=== PATIENT | female | born 1985 | race Caucasian/White ===

== ENCOUNTER 2021-09-16 20:46 | Emergency (ER) | payer OTHER ==
[~2021-09-16] VITALS: Ht 167.6 cm; Wt 90.7 kg
[2021-09-16 21:34] LABS: BASO # 0.1 10*3/uL (0.0-0.1); BASO % 0.7 % (0.0-1.0); EOS # 0.3 10*3/uL (0.0-0.4); EOS % 2.4 % (1.0-4.0); HEMATOCRIT 31.6 % (37.0-47.0); LYMPH # 2.6 10*3/uL (1.3-4.4); LYMPH % 21.7 % (27.0-41.0); MEAN CELL VOLUME 90.3 fl (81.0-99.0); MEAN CORPUSCULAR HGB 29.4 pg (27.0-31.0); MEAN CORPUSCULAR HGB CONC 32.6 g/dl (33.0-37.0); MEAN PLATELET VOLUME 9.6 fl (9.6-12.3); MONO # 1.2 10*3/uL (0.1-1.0); MONO % 10.4 % (3.0-9.0); NEUT # 7.7 10*3/uL (2.3-7.9); NEUT % 64.3 % (47.0-73.0); PLATELET COUNT AUTOMATED 487 10*3/uL (130-400); RED CELL DISTRI WIDTH 12.5 % (0-14.5); WHITE BLOOD COUNT 11.9 10*3/uL (4.8-10.8)
[2021-09-16 21:45] LABS: ACT PARTIAL THROMBO TIME 28.8 SECONDS (20.0-32.1)
[2021-09-16 21:49] LABS: ALKALINE PHOSPHATASE 81 U/L (45-117); BUN 18 mg/dl (7-24); CHLORIDE 109 mmol/L (98-107); CREATININE 0.84 mg/dL (0.55-1.02); POTASSIUM 4.3 mmol/L (3.5-5.1); SGOT/AST 42 IU/L (3-35); SGPT/ALT 26 U/L (12-78); SODIUM 139 mmol/L (136-145); TOTAL PROTEIN 6.4 gm/dL (6.4-8.2)
== END 2021-09-17 01:10 | disposition home or self-care (01) ==
LOC: ED 20:46
PROVIDERS: Internal Medicine
DX: I50.9 Heart failure, unspecified (principal); D64.9 Anemia, unspecified; E43 Unspecified severe protein-calorie malnutrition; R73.9 Hyperglycemia, unspecified

== ENCOUNTER 2022-12-11 14:35 | Emergency (ER) | payer OTHER ==
[~2022-12-11] VITALS: Ht 170.1 cm; Wt 92.1 kg
[~2022-12-11 14:35] MED LIST: ALDACTONE25 MG PO; ASPIRIN CHEWABL81 MG PO; ATORVASTATIN CA40 M1 PO; BUMETANIDE1 MG PO; BUSPIRONE HCL30 MG PO; ENTRESTO 24 MG1 EACH PO; FISH OIL 1,2001 EACH PO; GABAPENTIN400 MG PO; HUMALOG100 UNIT/1 SQ; LAMICTAL100 MG PO; LYVISPAH10 M1 PO; METOPROLOL SUCC25 M2 PO; METOPROLOL SUCC50 M1 PO; OMEPRAZOLE40 MG PO; PROZAC40 M1 PO; TOUJEO SOL300 UNIT/1 SQ; TRAZODONE HYDR300 MG PO; ZIPRASIDONE HCL40 MG PO
[2022-12-11 19:54] LABS: BASO # 0.1 10*3/uL (0.0-0.1); BASO % 0.7 % (0.0-1.0); EOS # 0.6 10*3/uL (0.0-0.4); EOS % 5.9 % (1.0-4.0); HEMATOCRIT 46.7 % (37.0-47.0); LYMPH # 2.8 10*3/uL (1.3-4.4); LYMPH % 29.5 % (27.0-41.0); MEAN CELL VOLUME 84.1 fl (81.0-99.0); MEAN CORPUSCULAR HGB CONC 32.1 g/dl (33.0-37.0); MEAN PLATELET VOLUME 9.7 fl (9.6-12.3); MONO # 0.8 10*3/uL (0.1-1.0); NEUT # 5.1 10*3/uL (2.3-7.9); NEUT % 54.7 % (47.0-73.0); PLATELET COUNT AUTOMATED 364 10*3/uL (130-400); RED BLOOD COUNT 5.55 10*6/uL (4.10-5.10); RED CELL DISTRI WIDTH 13.2 % (0-14.5); WHITE BLOOD COUNT 9.4 10*3/uL (4.8-10.8)
[2022-12-11 20:13] LABS: ALKALINE PHOSPHATASE 74 U/L (46-116); BUN 24 mg/dl (9-23); CHLORIDE 98 mmol/L (98-107); POTASSIUM 4.4 mmol/L (3.4-5.1); SGPT/ALT 15 U/L (10-49); TOTAL PROTEIN 7.5 gm/dL (6.0-8.0)
== END 2022-12-11 21:51 | disposition home or self-care (01) ==
LOC: ED 14:35
PROVIDERS: Nurse Practitioner Family
DX: M25.561 Pain in right knee (principal); Z98.890 Other specified postprocedural states; D64.9 Anemia, unspecified; F41.9 Anxiety disorder, unspecified; F31.9 Bipolar disorder, unspecified; I50.9 Heart failure, unspecified; E11.65 Type 2 diabetes mellitus with hyperglycemia; Z79.4 Long term (current) use of insulin; I25.2 Old myocardial infarction; Z90.89 Acquired absence of other organs; Z87.891 Personal history of nicotine dependence

== ENCOUNTER 2023-08-16 16:58 | Inpatient (IN) | payer MEDICARE ==
[~2023-08-16] VITALS: Ht 170 cm; Wt 101.7 kg
[~2023-08-16 16:58] MED LIST changes: +CIPRO500 MG PO; +METRONIDAZOLE500 M1 PO; +VENLAFAXINE HYD75 M3 PO; +VITAMIN D3125 MCG PO; +ZIPRASIDONE HCL60 M1 PO
[2023-08-16 17:21] VITALS: BP 188/100
[2023-08-16 18:03] LABS: BASO # 0.1 10*3/uL (0.0-0.1); BASO % 0.8 % (0.0-1.0); EOS # 0.2 10*3/uL (0.0-0.4); EOS % 2.3 % (1.0-4.0); HEMATOCRIT 40.5 % (37.0-47.0); LYMPH # 1.9 10*3/uL (1.3-4.4); LYMPH % 23.1 % (27.0-41.0); MEAN CORPUSCULAR HGB 29.3 pg (27.0-31.0); MEAN CORPUSCULAR HGB CONC 34.1 g/dl (33.0-37.0); MEAN PLATELET VOLUME 9.6 fl (9.6-12.3); MONO # 0.5 10*3/uL (0.1-1.0); MONO % 5.9 % (3.0-9.0); NEUT # 5.6 10*3/uL (2.3-7.9); NEUT % 67.7 % (47.0-73.0); PLATELET COUNT AUTOMATED 381 10*3/uL (130-400); RED BLOOD COUNT 4.71 10*6/uL (4.10-5.10); RED CELL DISTRI WIDTH 12.6 % (0-14.5); WHITE BLOOD COUNT 8.3 10*3/uL (4.8-10.8)
[2023-08-16 18:14] LABS: ACT PARTIAL THROMBO TIME 31.6 SECONDS (20.0-32.1)
[2023-08-16 18:27] LABS: ALKALINE PHOSPHATASE 95 U/L (46-116); BUN 26 mg/dl (9-23); CHLORIDE 98 mmol/L (98-107); SGPT/ALT 16 U/L (5-49); TOTAL PROTEIN 5.9 gm/dL (6.0-8.0)
[2023-08-16] MEDS ORDERED: Insulin Lispro, Recombinant 1 UNIT/0.01 ML UN SC ONE (18:40)
[2023-08-16] MEDS ORDERED: INSULIN LISPRO 1 UNIT/0.01 ML SQ ONE (18:40)
[2023-08-16] MEDS ORDERED: SODIUM CHLORIDE 0.9% 500 ML IV ONE (18:40)
[2023-08-16 18:58] LABS: BILIRUBIN Negative (Negative); BLOOD 2+ (Negative); CLARITY Clear (Clear); COLOR Yellow (Yellow); GLUCOSE 3+ (Negative); KETONE Trace (Negative); LEUKO ESTERASE Negative (Negative); NITRITE Negative (Negative); SPECIFIC GRAVITY >= 1.030 (1.001-1.030); UROBILINOGEN 0.2 E.U./dl (0.0-1.0)
[2023-08-16 19:10] LABS: BACTERIA TRACE; WBC 0-2 wbc/hpf (0-5)
[2023-08-16 19:25] LABS: B-hCG (QUALITATIVE) NEGATIVE (NEGATIVE)
[2023-08-16] MEDS ORDERED: DEXTROSE 10 % IN WATER 250 ML IV PRN (21:25)
[2023-08-16] MEDS ORDERED: BISACODYL 5 MG TAB PO PRN (21:30)
[2023-08-16] MEDS ORDERED: Magnesium Hydroxide 30 ML UDC PO PRN (21:30)
[2023-08-16] MEDS ORDERED: ACETAMINOPHEN 325 MG TAB PO PRN (21:30)
[2023-08-16] MEDS ORDERED: ASPIRIN, CHEWABLE 81 MG TAB PO ONE (21:35)
[2023-08-16] MEDS ORDERED: Metoprolol Tartrate 25 MG TAB PO SCH (21:35)
[2023-08-16] MEDS ORDERED: HEPARIN SODIUM 250 ML IV SCH (21:35)
[2023-08-16] MEDS ORDERED: SODIUM CHLORIDE 0.9% 1,000 ML IV ONE (21:45)
[2023-08-16 21:55] VITALS: BP 174/101
[2023-08-16] MEDS ORDERED: INSULIN LISPRO 1 UNIT/0.01 ML SQ SCH (22:00)
[2023-08-16] MEDS ORDERED: Acetaminophen/Hydrocodone 5 MG/325 MG TABLET PO PRN (22:40)
[2023-08-16] MEDS ORDERED: Ondansetron Hydrochloride 4 MG/2 ML VIAL IV PRN (22:40)
[2023-08-16] MEDS ORDERED: MORPHINE Sulfate 2 MG/ML SYR IV PRN (22:40)
[2023-08-16] MEDS ORDERED: LABETALOL HCL IV ONE (23:35)
[2023-08-17] VITALS (7 sets, daily range): BP systolic 123–170; BP diastolic 64–101
[2023-08-17] MEDS ORDERED: BUMETANIDE 1 MG/4 ML VIAL IV SCH (01:40)
[2023-08-17] MEDS ORDERED: Ceftriaxone Sodium 2 GM in SYRINGE INFUSION 20 ML IV SCH (01:40)
[2023-08-17] MEDS ORDERED: Labetalol Hydrochloride 20 MG/4 ML SYR IV ONE (01:45)
[2023-08-17] MEDS ORDERED: Doxycycline Hyclate 100 MG in SODIUM CHLORIDE 0.9% 250 ML IV SCH (02:00)
[2023-08-17 04:32] LABS: BASO # 0.1 10*3/uL (0.0-0.1); EOS # 0.3 10*3/uL (0.0-0.4); EOS % 3.2 % (1.0-4.0); HEMATOCRIT 40.8 % (37.0-47.0); MEAN CELL VOLUME 85.5 fl (81.0-99.0); MEAN PLATELET VOLUME 9.9 fl (9.6-12.3); MONO # 0.6 10*3/uL (0.1-1.0); MONO % 6.3 % (3.0-9.0); NEUT # 4.3 10*3/uL (2.3-7.9); NEUT % 46.3 % (47.0-73.0); PLATELET COUNT AUTOMATED 358 10*3/uL (130-400); RED BLOOD COUNT 4.77 10*6/uL (4.10-5.10); RED CELL DISTRI WIDTH 12.9 % (0-14.5); WHITE BLOOD COUNT 9.2 10*3/uL (4.8-10.8)
[2023-08-17 04:53] LABS: FREE T4 0.92 ng/dl (0.89-1.76); POTASSIUM 3.4 mmol/L (3.4-5.1)
[2023-08-17] MEDS ORDERED: ASPIRIN ENTERIC COATED 81 MG TAB PO SCH (10:00)
[2023-08-17] MEDS ORDERED: ATORVASTATIN CALCIUM 80 MG TAB PO SCH (10:00)
[2023-08-17] MEDS ORDERED: GUAIFENESIN 600 MG TAB ER PO SCH (10:00)
[2023-08-17] MEDS ORDERED: Doxycycline Hyclate 100 MG VIAL IV ONE (10:14)
[2023-08-17] MEDS ORDERED: SODIUM CHLORIDE 0.9% 250 ML BAG IV ONE (10:14)
[2023-08-17] MEDS ORDERED: LAMOTRIGINE 100 MG TAB PO SCH (17:05)
[2023-08-17] MEDS ORDERED: Insulin Glargine, Recombinan 1 UNIT/0.01 ML SC SCH (22:00)
[2023-08-17] MEDS ORDERED: GABAPENTIN 600 MG TAB PO SCH (22:00)
[2023-08-17] MEDS ORDERED: TRAZODONE HYDROCHLORIDE 150 MG PO SCH ×2 (22:00)
[2023-08-18] MEDS ORDERED: Doxycycline Hyclate 100 MG CAP PO SCH (00:30)
[2023-08-18 03:19] LABS: BASO # 0.1 10*3/uL (0.0-0.1); BASO % 1.1 % (0.0-1.0); EOS # 0.3 10*3/uL (0.0-0.4); EOS % 3.3 % (1.0-4.0); HEMATOCRIT 41.3 % (37.0-47.0); LYMPH # 4.3 10*3/uL (1.3-4.4); LYMPH % 45.3 % (27.0-41.0); MEAN CORPUSCULAR HGB CONC 32.7 g/dl (33.0-37.0); MEAN PLATELET VOLUME 9.7 fl (9.6-12.3); MONO # 0.5 10*3/uL (0.1-1.0); MONO % 5.7 % (3.0-9.0); NEUT # 4.2 10*3/uL (2.3-7.9); NEUT % 44.4 % (47.0-73.0); PLATELET COUNT AUTOMATED 370 10*3/uL (130-400); RED BLOOD COUNT 4.66 10*6/uL (4.10-5.10); RED CELL DISTRI WIDTH 13.2 % (0-14.5); WHITE BLOOD COUNT 9.5 10*3/uL (4.8-10.8)
[2023-08-18 03:29] LABS: MEAN CELL VOLUME 88.6 fl (81.0-99.0)
[2023-08-18 03:37] LABS: POTASSIUM 3.6 mmol/L (3.4-5.1)
[2023-08-18 04:35] VITALS: BP 127/66
[2023-08-18] MEDS ORDERED: OMEPRAZOLE 20 MG CAP PO SCH (07:30)
[2023-08-18] MEDS ORDERED: Cholecalciferol 5,000 IU CAP (125 MCG) PO SCH (10:00)
[2023-08-18] MEDS ORDERED: Venlafaxine Hydrochloride 75 MG CAP PO SCH (10:00)
[2023-08-18 12:20] VITALS: BP 137/76
[2023-08-18 14:00] VITALS: BP 137/83
[2023-08-18] MEDS ORDERED: FOAM BANDAGE 4X4 T ONE ×2 (15:19→15:37)
[2023-08-18 20:00] VITALS: BP 141/80
[2023-08-18] MEDS ORDERED: HEPARIN SODIUM 5,000 UNIT/ML VIAL SC SCH (22:00)
[2023-08-18] MEDS ORDERED: GABAPENTIN 600 MG TAB PO SCH (22:00)
[2023-08-19 04:04] LABS: BASO # 0.1 10*3/uL (0.0-0.1); BASO % 1.1 % (0.0-1.0); EOS # 0.4 10*3/uL (0.0-0.4); EOS % 4.9 % (1.0-4.0); HEMATOCRIT 39.1 % (37.0-47.0); LYMPH # 3.7 10*3/uL (1.3-4.4); LYMPH % 41.2 % (27.0-41.0); MEAN CELL VOLUME 89.3 fl (81.0-99.0); MEAN CORPUSCULAR HGB CONC 32.5 g/dl (33.0-37.0); MEAN PLATELET VOLUME 9.6 fl (9.6-12.3); MONO # 0.7 10*3/uL (0.1-1.0); MONO % 8.1 % (3.0-9.0); NEUT % 44.3 % (47.0-73.0); PLATELET COUNT AUTOMATED 344 10*3/uL (130-400); RED BLOOD COUNT 4.38 10*6/uL (4.10-5.10); RED CELL DISTRI WIDTH 13.1 % (0-14.5); WHITE BLOOD COUNT 9.1 10*3/uL (4.8-10.8)
[2023-08-19 04:29] LABS: POTASSIUM 4.5 mmol/L (3.4-5.1)
[2023-08-19 08:00] VITALS: BP 114/71
[2023-08-19] MEDS ORDERED: EMPAGLIFLOZIN 10 MG TABLET PO SCH (10:00)
[2023-08-19] MEDS ORDERED: ATORVASTATIN CA80 M1 PO (11:27)
[2023-08-19] MEDS ORDERED: APRESOLINE25 MG PO (11:27)
[2023-08-19] MEDS ORDERED: DOXYCYCLINE MO100 MG PO (11:27)
[2023-08-19] MEDS ORDERED: IMDUR SA30 MG PO (11:27)
[2023-08-19 12:00] VITALS: BP 135/82
== END 2023-08-19 14:22 | disposition home or self-care (01) | DRG 280 ==
LOC: ED 16:58 → EDHOLD 18:58 → ED 18:58 → EDHOLD 21:08 → 4E 08-18 13:50
PROVIDERS: Emergency Medicine; Family Medicine; Student in an Organized Health Care Education/Training Program; ADMIT Internal Medicine; ATTEND Internal Medicine
DX: I21.4 Non-ST elevation (NSTEMI) myocardial infarction (principal); E43 Unspecified severe protein-calorie malnutrition; I50.23 Acute on chronic systolic (congestive) heart failure; N17.0 Acute kidney failure with tubular necrosis; J18.9 Pneumonia, unspecified organism; E87.1 Hypo-osmolality and hyponatremia; I16.1 Hypertensive emergency; I13.0 Hypertensive heart and chronic kidney disease with heart failure and stage 1 through stage 4 chronic kidney disease, or unspecified chronic kidney disease; J91.8 Pleural effusion in other conditions classified elsewhere; N18.4 Chronic kidney disease, stage 4 (severe); I25.10 Atherosclerotic heart disease of native coronary artery without angina pectoris; F31.9 Bipolar disorder, unspecified; F41.1 Generalized anxiety disorder; R31.29 Other microscopic hematuria; I34.0 Nonrheumatic mitral (valve) insufficiency; E86.0 Dehydration; E10.22 Type 1 diabetes mellitus with diabetic chronic kidney disease; E10.65 Type 1 diabetes mellitus with hyperglycemia; E10.40 Type 1 diabetes mellitus with diabetic neuropathy, unspecified; E10.319 Type 1 diabetes mellitus with unspecified diabetic retinopathy without macular edema; E86.1 Hypovolemia; R82.4 Acetonuria; N20.0 Calculus of kidney; Z79.899 Other long term (current) drug therapy; Z79.01 Long term (current) use of anticoagulants; Z83.3 Family history of diabetes mellitus; Z79.2 Long term (current) use of antibiotics; Z79.84 Long term (current) use of oral hypoglycemic drugs; Z68.37 Body mass index [BMI] 37.0-37.9, adult; Z87.891 Personal history of nicotine dependence; Z82.3 Family history of stroke; Z82.49 Family history of ischemic heart disease and other diseases of the circulatory system

== ENCOUNTER → 2023-08-26 | Outpatient (CLI) | payer MEDICARE ==
[~2023-08-26] MED LIST changes: +APRESOLINE25 MG PO; +ATORVASTATIN CA80 M1 PO; +DOXYCYCLINE MO100 MG PO; +IMDUR SA30 MG PO; +Regadenoson 0.4 MG/5 ML SYR IV ONE
== END ==
LOC: CARD 00:24
PROVIDERS: ATTEND Internal Medicine Cardiovascular Disease
DX: R09.89 Other specified symptoms and signs involving the circulatory and respiratory systems (principal); R94.31 Abnormal electrocardiogram [ECG] [EKG]

== ENCOUNTER 2023-10-13 16:27 | Inpatient (IN) | payer OTHER ==
[~2023-10-13] VITALS: Ht 172.7 cm; Wt 104.3 kg
[~2023-10-13 16:27] MED LIST changes: -Regadenoson 0.4 MG/5 ML SYR IV ONE
[2023-10-13 16:38] VITALS: BP 172/83
[2023-10-13 17:37] LABS: BASO # 0.1 10*3/uL (0.0-0.1); BASO % 0.7 % (0.0-1.0); EOS # 0.2 10*3/uL (0.0-0.4); EOS % 1.8 % (1.0-4.0); HEMATOCRIT 34.2 % (37.0-47.0); LYMPH # 1.7 10*3/uL (1.3-4.4); LYMPH % 17.4 % (27.0-41.0); MEAN CELL VOLUME 90.5 fl (81.0-99.0); MEAN CORPUSCULAR HGB 28.3 pg (27.0-31.0); MEAN CORPUSCULAR HGB CONC 31.3 g/dl (33.0-37.0); MEAN PLATELET VOLUME 9.4 fl (9.6-12.3); MONO # 0.8 10*3/uL (0.1-1.0); MONO % 8.1 % (3.0-9.0); NEUT # 6.8 10*3/uL (2.3-7.9); NEUT % 71.8 % (47.0-73.0); PLATELET COUNT AUTOMATED 388 10*3/uL (130-400); RED BLOOD COUNT 3.78 10*6/uL (4.10-5.10); RED CELL DISTRI WIDTH 12.8 % (0-14.5); WHITE BLOOD COUNT 9.5 10*3/uL (4.8-10.8)
[2023-10-13 18:02] LABS: POTASSIUM 3.3 mmol/L (3.4-5.1)
[2023-10-13] MEDS ORDERED: BUMETANIDE 1 MG/4 ML VIAL IV ONE (19:35)
[2023-10-13] MEDS ORDERED: Acetaminophen/Hydrocodone HP 10/325 PO ONE (19:40)
[2023-10-13] MEDS ORDERED: BISACODYL 5 MG TAB PO PRN (21:40)
[2023-10-13] MEDS ORDERED: BISACODYL 10 MG SUPP R PRN (21:40)
[2023-10-13] MEDS ORDERED: ACETAMINOPHEN 650 MG SUPP R PRN (21:40)
[2023-10-13] MEDS ORDERED: ACETAMINOPHEN 325 MG TAB PO PRN (21:40)
[2023-10-13] MEDS ORDERED: Magnesium Hydroxide 30 ML UDC PO PRN (21:40)
[2023-10-13] MEDS ORDERED: Insulin Glargine, Recombinan 1 UNIT/0.01 ML SC SCH (22:00)
[2023-10-13] MEDS ORDERED: GABAPENTIN 400 MG CAP PO SCH (22:00)
[2023-10-13] MEDS ORDERED: hydrALAZINE hydrochloride 25 MG TAB PO SCH (22:00)
[2023-10-13] MEDS ORDERED: DEXTROSE 10 % IN WATER 250 ML IV PRN (22:00)
[2023-10-13] MEDS ORDERED: INSULIN LISPRO 1 UNIT/0.01 ML SQ SCH (22:00)
[2023-10-13] MEDS ORDERED: POTASSIUM CHLORIDE 20 MEQ TAB PO ONE (22:05)
[2023-10-13] MEDS ORDERED: busPIRone Hydrochloride 15 MG TAB PO SCH (22:17)
[2023-10-13] MEDS ORDERED: BUMETANIDE 1 MG TAB PO ONE (23:40)
[2023-10-14] MEDS ORDERED: Acetaminophen/Hydrocodone 5 MG/325 MG TABLET PO PRN (01:25)
[2023-10-14] MEDS ORDERED: BUMETANIDE 1 MG TAB PO ONE ×2 (03:45→18:35)
[2023-10-14] MEDS ORDERED: BUMETANIDE 1 MG/4 ML VIAL IV SCH (06:00)
[2023-10-14 06:25] VITALS: BP 137/68
[2023-10-14 06:34] LABS: BASO # 0.1 10*3/uL (0.0-0.1); BASO % 0.7 % (0.0-1.0); EOS # 0.3 10*3/uL (0.0-0.4); EOS % 3.2 % (1.0-4.0); HEMATOCRIT 32.8 % (37.0-47.0); LYMPH # 2.6 10*3/uL (1.3-4.4); LYMPH % 28.9 % (27.0-41.0); MEAN CELL VOLUME 90.1 fl (81.0-99.0); MEAN CORPUSCULAR HGB 28.3 pg (27.0-31.0); MEAN CORPUSCULAR HGB CONC 31.4 g/dl (33.0-37.0); MEAN PLATELET VOLUME 10.1 fl (9.6-12.3); MONO # 0.8 10*3/uL (0.1-1.0); MONO % 9.3 % (3.0-9.0); NEUT # 5.2 10*3/uL (2.3-7.9); NEUT % 57.5 % (47.0-73.0); PLATELET COUNT AUTOMATED 344 10*3/uL (130-400); RED BLOOD COUNT 3.64 10*6/uL (4.10-5.10); RED CELL DISTRI WIDTH 12.6 % (0-14.5)
[2023-10-14 06:52] LABS: ALKALINE PHOSPHATASE 96 U/L (46-116); BUN 23 mg/dl (9-23); CHLORIDE 109 mmol/L (98-107); SGPT/ALT 10 U/L (5-49); TOTAL PROTEIN 5.7 gm/dL (6.0-8.0)
[2023-10-14 08:00] VITALS: BP 150/68
[2023-10-14] MEDS ORDERED: Ziprasidone Hydrochloride 60 MG CAP PO SCH (08:00)
[2023-10-14] MEDS ORDERED: POTASSIUM CHLORIDE 20 MEQ TAB PO ONE (08:00)
[2023-10-14] MEDS ORDERED: Ceftriaxone Sodium 1 GM in SYRINGE INFUSION 10 ML IV SCH (10:00)
[2023-10-14] MEDS ORDERED: ISOSORBIDE MONONITRATE 30 MG TAB PO SCH (10:00)
[2023-10-14] MEDS ORDERED: Venlafaxine Hydrochloride 75 MG CAP PO SCH (10:00)
[2023-10-14] MEDS ORDERED: METOPROLOL SUCCINATE XR 50 MG TAB PO SCH (10:00)
[2023-10-14] MEDS ORDERED: LAMOTRIGINE 100 MG TAB PO SCH (10:00)
[2023-10-14] MEDS ORDERED: Enoxaparin Sodium 40 MG/0.4 ML SYR SC SCH (10:00)
[2023-10-14] MEDS ORDERED: HEPARIN SODIUM 5,000 UNIT/ML VIAL SC SCH (10:00)
[2023-10-14] MEDS ORDERED: ATORVASTATIN CALCIUM 80 MG TAB PO SCH (10:00)
[2023-10-14] MEDS ORDERED: AZITHROMYCIN 250 ML IV SCH (10:00)
[2023-10-14] MEDS ORDERED: ASPIRIN, CHEWABLE 81 MG TAB PO SCH (10:00)
[2023-10-14] MEDS ORDERED: GABAPENTIN 400 MG CAP PO SCH (12:15)
[2023-10-14 16:41] LABS: URINE CREATININE RANDOM 36.58 mg/dL
[2023-10-14 19:31] VITALS: BP 124/71
[2023-10-15] MEDS ORDERED: Albuterol Sulfate 2.5 MG/3 ML VIAL NEB PRN (03:40)
[2023-10-15 06:15] VITALS: BP 146/77
[2023-10-15 07:03] LABS: BASO # 0.1 10*3/uL (0.0-0.1); EOS # 0.4 10*3/uL (0.0-0.4); EOS % 3.8 % (1.0-4.0); HEMATOCRIT 33.1 % (37.0-47.0); LYMPH # 3.2 10*3/uL (1.3-4.4); LYMPH % 34.6 % (27.0-41.0); MEAN CELL VOLUME 91.2 fl (81.0-99.0); MEAN CORPUSCULAR HGB 28.4 pg (27.0-31.0); MEAN CORPUSCULAR HGB CONC 31.1 g/dl (33.0-37.0); MEAN PLATELET VOLUME 9.9 fl (9.6-12.3); MONO # 0.8 10*3/uL (0.1-1.0); NEUT # 4.8 10*3/uL (2.3-7.9); NEUT % 51.8 % (47.0-73.0); PLATELET COUNT AUTOMATED 428 10*3/uL (130-400); RED BLOOD COUNT 3.63 10*6/uL (4.10-5.10); WHITE BLOOD COUNT 9.3 10*3/uL (4.8-10.8)
[2023-10-15 07:10] LABS: ALKALINE PHOSPHATASE 99 U/L (46-116); BUN 24 mg/dl (9-23); CHLORIDE 109 mmol/L (98-107); SGPT/ALT 12 U/L (5-49); TOTAL PROTEIN 6.4 gm/dL (6.0-8.0)
[2023-10-15 08:00] VITALS: BP 146/77
[2023-10-15 14:10] VITALS: BP 131/78
[2023-10-15 16:00] VITALS: BP 121/65
[2023-10-15 20:00] VITALS: BP 150/87
[2023-10-16] VITALS: BP 123/71
[2023-10-16 05:09] LABS: ALKALINE PHOSPHATASE 96 U/L (46-116); BUN 25 mg/dl (9-23); CHLORIDE 108 mmol/L (98-107); POTASSIUM 3.9 mmol/L (3.4-5.1); SGPT/ALT 17 U/L (5-49); TOTAL PROTEIN 5.9 gm/dL (6.0-8.0)
[2023-10-16 06:02] LABS: BASO # 0.1 10*3/uL (0.0-0.1); BASO % 1.1 % (0.0-1.0); EOS # 0.4 10*3/uL (0.0-0.4); EOS % 4.1 % (1.0-4.0); HEMATOCRIT 32.2 % (37.0-47.0); LYMPH # 3.5 10*3/uL (1.3-4.4); LYMPH % 36.4 % (27.0-41.0); MEAN CELL VOLUME 94.2 fl (81.0-99.0); MEAN CORPUSCULAR HGB 28.4 pg (27.0-31.0); MEAN CORPUSCULAR HGB CONC 30.1 g/dl (33.0-37.0); MEAN PLATELET VOLUME 10.1 fl (9.6-12.3); MONO # 0.7 10*3/uL (0.1-1.0); MONO % 7.6 % (3.0-9.0); NEUT # 4.8 10*3/uL (2.3-7.9); NEUT % 49.6 % (47.0-73.0); PLATELET COUNT AUTOMATED 414 10*3/uL (130-400); RED BLOOD COUNT 3.42 10*6/uL (4.10-5.10); WHITE BLOOD COUNT 9.7 10*3/uL (4.8-10.8)
[2023-10-16 08:00] VITALS: BP 150/84
[2023-10-16 12:00] VITALS: BP 136/74
[2023-10-16] MEDS ORDERED: BUMETANIDE 1 MG/4 ML VIAL IV ONE (12:25)
[2023-10-16] MEDS ORDERED: BUMETANIDE 12.5 MG in SYRINGE INFUSION 0 ML IV SCH (12:26)
[2023-10-16 16:00] VITALS: BP 136/75
[2023-10-16 20:00] VITALS: BP 164/62
[2023-10-16] MEDS ORDERED: VANCOMYCIN HCL 125 MG CAPSULE PO SCH (22:00)
[2023-10-17] VITALS: BP 158/60
[2023-10-17 05:54] LABS: ALKALINE PHOSPHATASE 113 U/L (46-116); BUN 29 mg/dl (9-23); CHLORIDE 107 mmol/L (98-107); POTASSIUM 4.1 mmol/L (3.4-5.1); SGPT/ALT 15 U/L (5-49); TOTAL PROTEIN 6.9 gm/dL (6.0-8.0)
[2023-10-17 06:55] LABS: BASO # 0.1 10*3/uL (0.0-0.1); BASO % 1.1 % (0.0-1.0); EOS # 0.3 10*3/uL (0.0-0.4); EOS % 4.1 % (1.0-4.0); HEMATOCRIT 37.2 % (37.0-47.0); LYMPH # 3.1 10*3/uL (1.3-4.4); LYMPH % 37.3 % (27.0-41.0); MEAN CELL VOLUME 93.2 fl (81.0-99.0); MEAN CORPUSCULAR HGB 28.6 pg (27.0-31.0); MEAN CORPUSCULAR HGB CONC 30.6 g/dl (33.0-37.0); MONO # 0.6 10*3/uL (0.1-1.0); MONO % 7.3 % (3.0-9.0); NEUT # 4.1 10*3/uL (2.3-7.9); NEUT % 49.1 % (47.0-73.0); PLATELET COUNT AUTOMATED 500 10*3/uL (130-400); RED BLOOD COUNT 3.99 10*6/uL (4.10-5.10); RED CELL DISTRI WIDTH 12.8 % (0-14.5); WHITE BLOOD COUNT 8.3 10*3/uL (4.8-10.8)
[2023-10-17 08:00] VITALS: BP 146/89
[2023-10-17 12:00] VITALS: BP 121/62
[2023-10-17 16:00] VITALS: BP 130/60
[2023-10-17 20:00] VITALS: BP 176/72
[2023-10-18] VITALS: BP 170/68
[2023-10-18 08:00] VITALS: BP 149/63
[2023-10-18 09:51] LABS: BASO # 0.1 10*3/uL (0.0-0.1); BASO % 1.1 % (0.0-1.0); EOS # 0.3 10*3/uL (0.0-0.4); EOS % 3.7 % (1.0-4.0); HEMATOCRIT 33.7 % (37.0-47.0); MEAN CELL VOLUME 91.8 fl (81.0-99.0); MEAN CORPUSCULAR HGB 28.3 pg (27.0-31.0); MEAN CORPUSCULAR HGB CONC 30.9 g/dl (33.0-37.0); MEAN PLATELET VOLUME 9.6 fl (9.6-12.3); MONO # 0.8 10*3/uL (0.1-1.0); MONO % 8.5 % (3.0-9.0); NEUT # 4.6 10*3/uL (2.3-7.9); NEUT % 51.5 % (47.0-73.0); PLATELET COUNT AUTOMATED 416 10*3/uL (130-400); RED BLOOD COUNT 3.67 10*6/uL (4.10-5.10); RED CELL DISTRI WIDTH 12.7 % (0-14.5); WHITE BLOOD COUNT 8.9 10*3/uL (4.8-10.8)
[2023-10-18] MEDS ORDERED: BUMETANIDE 12.5 MG in SYRINGE INFUSION 0 ML IV SCH (10:00)
[2023-10-18 10:27] LABS: ALKALINE PHOSPHATASE 104 U/L (46-116); BUN 34 mg/dl (9-23); CHLORIDE 106 mmol/L (98-107); POTASSIUM 3.5 mmol/L (3.4-5.1); SGPT/ALT 11 U/L (5-49); TOTAL PROTEIN 6.1 gm/dL (6.0-8.0)
[2023-10-18 12:00] VITALS: BP 127/61
[2023-10-18 16:00] VITALS: BP 141/74
[2023-10-18 20:00] VITALS: BP 139/60
[2023-10-19] VITALS: BP 137/65
[2023-10-19 05:56] LABS: ALKALINE PHOSPHATASE 105 U/L (46-116); BUN 33 mg/dl (9-23); CHLORIDE 103 mmol/L (98-107); POTASSIUM 3.6 mmol/L (3.4-5.1); SGPT/ALT 13 U/L (5-49); TOTAL PROTEIN 6.4 gm/dL (6.0-8.0)
[2023-10-19 06:12] LABS: BASO # 0.1 10*3/uL (0.0-0.1); BASO % 1.3 % (0.0-1.0); EOS # 0.4 10*3/uL (0.0-0.4); EOS % 4.7 % (1.0-4.0); HEMATOCRIT 35.5 % (37.0-47.0); LYMPH # 3.3 10*3/uL (1.3-4.4); LYMPH % 35.7 % (27.0-41.0); MEAN CELL VOLUME 91.5 fl (81.0-99.0); MEAN CORPUSCULAR HGB 28.4 pg (27.0-31.0); MEAN PLATELET VOLUME 10.1 fl (9.6-12.3); MONO # 0.8 10*3/uL (0.1-1.0); MONO % 8.6 % (3.0-9.0); NEUT # 4.5 10*3/uL (2.3-7.9); NEUT % 48.5 % (47.0-73.0); PLATELET COUNT AUTOMATED 471 10*3/uL (130-400); RED BLOOD COUNT 3.88 10*6/uL (4.10-5.10); RED CELL DISTRI WIDTH 12.8 % (0-14.5); WHITE BLOOD COUNT 9.3 10*3/uL (4.8-10.8)
[2023-10-19 08:00] VITALS: BP 136/65
[2023-10-19 12:00] VITALS: BP 150/81
[2023-10-19 16:00] VITALS: BP 137/62
[2023-10-19 20:00] VITALS: BP 150/72
[2023-10-20] VITALS: BP 142/60
[2023-10-20 06:37] LABS: BASO # 0.1 10*3/uL (0.0-0.1); EOS # 0.4 10*3/uL (0.0-0.4); EOS % 3.4 % (1.0-4.0); HEMATOCRIT 34.7 % (37.0-47.0); LYMPH # 2.9 10*3/uL (1.3-4.4); LYMPH % 26.3 % (27.0-41.0); MEAN CELL VOLUME 91.8 fl (81.0-99.0); MEAN CORPUSCULAR HGB 28.6 pg (27.0-31.0); MEAN CORPUSCULAR HGB CONC 31.1 g/dl (33.0-37.0); MONO # 0.9 10*3/uL (0.1-1.0); MONO % 7.9 % (3.0-9.0); NEUT # 6.6 10*3/uL (2.3-7.9); NEUT % 60.2 % (47.0-73.0); PLATELET COUNT AUTOMATED 436 10*3/uL (130-400); RED BLOOD COUNT 3.78 10*6/uL (4.10-5.10); RED CELL DISTRI WIDTH 12.6 % (0-14.5)
[2023-10-20 06:39] LABS: ALKALINE PHOSPHATASE 118 U/L (46-116); BUN 37 mg/dl (9-23); CHLORIDE 105 mmol/L (98-107); POTASSIUM 3.5 mmol/L (3.4-5.1); SGPT/ALT 23 U/L (5-49); TOTAL PROTEIN 6.2 gm/dL (6.0-8.0)
[2023-10-20 08:00] VITALS: BP 149/80
[2023-10-20 12:00] VITALS: BP 138/76
[2023-10-20] MEDS ORDERED: VANCOMYCIN HCL 250 MG CAPSULE PO SCH (14:00)
[2023-10-20 14:30] VITALS: BP 130/57
[2023-10-20 20:00] VITALS: BP 166/82
[2023-10-21] VITALS: BP 162/75
[2023-10-21 07:09] LABS: POTASSIUM 3.7 mmol/L (3.4-5.1)
[2023-10-21 08:00] VITALS: BP 152/81
[2023-10-21] MEDS ORDERED: busPIRone Hydrochloride 15 MG TAB PO SCH (10:00)
[2023-10-21] MEDS ORDERED: BUMETANIDE 1 MG TAB PO SCH (10:00)
[2023-10-21] MEDS ORDERED: VANCOMYCIN HCL250 MG PO (11:01)
[2023-10-21] MEDS ORDERED: BUMETANIDE1 MG PO (11:01)
== END 2023-10-21 13:00 | disposition home or self-care (01) | DRG 291 ==
LOC: ED 16:27 → 4E 19:44 → EDHOLD 19:44 → 4E 10-15 12:09 → EDHOLD 10-15 12:09 → 4E 10-15 12:09
PROVIDERS: Internal Medicine; Internal Medicine Nephrology; Nurse Practitioner Family; Registered Nurse; Student in an Organized Health Care Education/Training Program; ADMIT Family Medicine; ATTEND Family Medicine
DX: I13.0 Hypertensive heart and chronic kidney disease with heart failure and stage 1 through stage 4 chronic kidney disease, or unspecified chronic kidney disease (principal); I50.23 Acute on chronic systolic (congestive) heart failure; J18.9 Pneumonia, unspecified organism; N17.0 Acute kidney failure with tubular necrosis; J91.8 Pleural effusion in other conditions classified elsewhere; N18.4 Chronic kidney disease, stage 4 (severe); A04.72 Enterocolitis due to Clostridium difficile, not specified as recurrent; D64.9 Anemia, unspecified; F41.1 Generalized anxiety disorder; I25.10 Atherosclerotic heart disease of native coronary artery without angina pectoris; E87.6 Hypokalemia; F32.9 Major depressive disorder, single episode, unspecified; E10.65 Type 1 diabetes mellitus with hyperglycemia; E10.42 Type 1 diabetes mellitus with diabetic polyneuropathy; Z91.199 Patient's noncompliance with other medical treatment and regimen due to unspecified reason; Z95.2 Presence of prosthetic heart valve; Z98.891 History of uterine scar from previous surgery; Z95.5 Presence of coronary angioplasty implant and graft; Z87.891 Personal history of nicotine dependence; Z83.3 Family history of diabetes mellitus; Z82.3 Family history of stroke; Z95.1 Presence of aortocoronary bypass graft

== ENCOUNTER → 2023-11-12 | Outpatient (CLI) | payer OTHER ==
[~2023-11-12] MED LIST changes: +VANCOMYCIN HCL250 MG PO
[2023-11-12 15:17] LABS: BASO # 0.1 10*3/uL (0.0-0.1); EOS # 0.5 10*3/uL (0.0-0.4); EOS % 5.4 % (1.0-4.0); HEMATOCRIT 39.8 % (37.0-47.0); LYMPH # 3.4 10*3/uL (1.3-4.4); LYMPH % 34.6 % (27.0-41.0); MEAN CELL VOLUME 88.4 fl (81.0-99.0); MEAN CORPUSCULAR HGB 28.4 pg (27.0-31.0); MEAN CORPUSCULAR HGB CONC 32.2 g/dl (33.0-37.0); MEAN PLATELET VOLUME 9.8 fl (9.6-12.3); MONO # 0.8 10*3/uL (0.1-1.0); MONO % 8.1 % (3.0-9.0); NEUT % 50.6 % (47.0-73.0); PLATELET COUNT AUTOMATED 306 10*3/uL (130-400); RED CELL DISTRI WIDTH 14.2 % (0-14.5); WHITE BLOOD COUNT 9.9 10*3/uL (4.8-10.8)
[2023-11-12 15:19] LABS: BILIRUBIN Negative (Negative); BLOOD 2+ (Negative); CLARITY Clear (Clear); COLOR Yellow (Yellow); GLUCOSE 2+ (Negative); KETONE Negative (Negative); LEUKO ESTERASE Negative (Negative); NITRITE Negative (Negative); PH 6.5 (4.5-8.0); UROBILINOGEN 0.2 E.U./dl (0.0-1.0)
[2023-11-12 15:28] LABS: URINE CREATININE RANDOM 52.89 mg/dL
[2023-11-12 15:35] LABS: BACTERIA 1+; MUCOUS 1+
[2023-11-12 15:43] LABS: POTASSIUM 3.9 mmol/L (3.4-5.1)
== END | disposition home or self-care (01) ==
LOC: LAB 14:31
PROVIDERS: ATTEND Internal Medicine Nephrology
DX: N18.30 Chronic kidney disease, stage 3 unspecified (principal); Z79.899 Other long term (current) drug therapy

== ENCOUNTER → 2023-11-27 | Outpatient (CLI) | payer OTHER | END | disposition home or self-care (01) | LOC: LAB 09:26 | PROVIDERS: ATTEND Family Medicine | DX: E11.9 Type 2 diabetes mellitus without complications (principal) ==

== ENCOUNTER → 2023-12-19 | Outpatient (CLI) | payer OTHER ==
[2023-12-19 13:46] LABS: BASO # 0.1 10*3/uL (0.0-0.1); BASO % 0.9 % (0.0-1.0); EOS # 0.4 10*3/uL (0.0-0.4); EOS % 3.6 % (1.0-4.0); HEMATOCRIT 41.3 % (37.0-47.0); LYMPH # 2.8 10*3/uL (1.3-4.4); LYMPH % 28.1 % (27.0-41.0); MEAN CELL VOLUME 88.8 fl (81.0-99.0); MEAN CORPUSCULAR HGB 27.7 pg (27.0-31.0); MEAN CORPUSCULAR HGB CONC 31.2 g/dl (33.0-37.0); MEAN PLATELET VOLUME 10.3 fl (9.6-12.3); MONO # 0.8 10*3/uL (0.1-1.0); MONO % 8.1 % (3.0-9.0); NEUT # 5.9 10*3/uL (2.3-7.9); NEUT % 58.9 % (47.0-73.0); PLATELET COUNT AUTOMATED 337 10*3/uL (130-400); RED BLOOD COUNT 4.65 10*6/uL (4.10-5.10); RED CELL DISTRI WIDTH 14.1 % (0-14.5)
[2023-12-19 14:08] LABS: BILIRUBIN Negative (Negative); BLOOD 2+ (Negative); CLARITY Clear (Clear); COLOR Yellow (Yellow); GLUCOSE 2+ (Negative); KETONE Negative (Negative); LEUKO ESTERASE Negative (Negative); NITRITE Negative (Negative); SPECIFIC GRAVITY 1.015 (1.001-1.030); UROBILINOGEN 0.2 E.U./dl (0.0-1.0)
[2023-12-19 14:19] LABS: POTASSIUM 3.6 mmol/L (3.4-5.1)
[2023-12-19 14:25] LABS: URINE CREATININE RANDOM 35.03 mg/dL
[2023-12-19 14:41] LABS: BACTERIA TRACE; RBC 16-20 rbc/hpf (0-2); WBC 0-2 wbc/hpf (0-5)
== END | disposition home or self-care (01) ==
LOC: LAB 12:23 → EDSTATUS 12:32
PROVIDERS: ATTEND Internal Medicine Nephrology
DX: N18.30 Chronic kidney disease, stage 3 unspecified (principal)

== ENCOUNTER 2024-01-02 15:42 | Inpatient (IN) | payer OTHER ==
[~2024-01-02] VITALS: Ht 172.7 cm; Wt 118.0 kg
[2024-01-02 15:47] VITALS: BP 170/100
[2024-01-02 16:38] LABS: ABG BASE EXCESS -5.9 mmol/L (-2.0-3.0); ABG O2 SATURATION 97.5 % (94.0-98.0); ARTERIAL BLOOD GAS PH 7.344 (7.350-7.450); ARTERIAL BLOOD GAS PO2 95.3 mmHg (83.0-108.0)
[2024-01-02 16:49] LABS: BASO # 0.1 10*3/uL (0.0-0.1); EOS # 0.2 10*3/uL (0.0-0.4); HEMATOCRIT 42.1 % (37.0-47.0); LYMPH # 2.1 10*3/uL (1.3-4.4); MEAN CELL VOLUME 91.5 fl (81.0-99.0); MEAN CORPUSCULAR HGB 27.8 pg (27.0-31.0); MEAN CORPUSCULAR HGB CONC 30.4 g/dl (33.0-37.0); MEAN PLATELET VOLUME 9.9 fl (9.6-12.3); MONO # 0.7 10*3/uL (0.1-1.0); MONO % 6.6 % (3.0-9.0); NEUT # 7.3 10*3/uL (2.3-7.9); PLATELET COUNT AUTOMATED 295 10*3/uL (130-400); RED CELL DISTRI WIDTH 13.8 % (0-14.5); WHITE BLOOD COUNT 10.5 10*3/uL (4.8-10.8)
[2024-01-02 16:55] LABS: BILIRUBIN Negative (Negative); BLOOD 1+ (Negative); CLARITY Clear (Clear); COLOR Yellow (Yellow); GLUCOSE 3+ (Negative); KETONE Negative (Negative); LEUKO ESTERASE Negative (Negative); NITRITE Negative (Negative); PH 6.5 (4.5-8.0); SPECIFIC GRAVITY 1.025 (1.001-1.030); UROBILINOGEN 0.2 E.U./dl (0.0-1.0)
[2024-01-02 17:04] LABS: POTASSIUM 4.3 mmol/L (3.4-5.1)
[2024-01-02 17:04] LABS: FINE GRANULAR CAST 0-2
[2024-01-02 17:16] VITALS: BP 149/83
[2024-01-02] MEDS ORDERED: Ceftriaxone Sodium 1 GM/10 ML SYR IV ONE (17:30)
[2024-01-02] MEDS ORDERED: AZITHROMYCIN 250 MG TAB PO ONE (17:30)
[2024-01-02] MEDS ORDERED: Magnesium Hydroxide 30 ML UDC PO PRN (18:15)
[2024-01-02] MEDS ORDERED: MORPHINE Sulfate 2 MG/ML SYR IV PRN (18:15)
[2024-01-02] MEDS ORDERED: Ondansetron Hydrochloride 4 MG/2 ML VIAL IV PRN (18:15)
[2024-01-02] MEDS ORDERED: ACETAMINOPHEN 325 MG TAB PO PRN (18:15)
[2024-01-02] MEDS ORDERED: ACETAMINOPHEN 650 MG SUPP R PRN (18:15)
[2024-01-02] MEDS ORDERED: BISACODYL 5 MG TAB PO PRN (18:15)
[2024-01-02] MEDS ORDERED: BISACODYL 10 MG SUPP R PRN (18:15)
[2024-01-02] MEDS ORDERED: Acetaminophen/Hydrocodone 5 MG/325 MG TABLET PO PRN (18:15)
[2024-01-02] MEDS ORDERED: Doxycycline Hyclate 100 MG in SODIUM CHLORIDE 0.9% 250 ML IV ONE (18:30)
[2024-01-02 18:51] VITALS: BP 137/80
[2024-01-02] MEDS ORDERED: DEXTROSE 10 % IN WATER 250 ML IV PRN (19:15)
[2024-01-02 20:26] VITALS: BP 148/81
[2024-01-02] MEDS ORDERED: HEPARIN SODIUM 5,000 UNIT/ML VIAL SC SCH (22:00)
[2024-01-02] MEDS ORDERED: GUAIFENESIN 600 MG TAB ER PO SCH (22:00)
[2024-01-02] MEDS ORDERED: INSULIN LISPRO 1 UNIT/0.01 ML SQ SCH (22:00)
[2024-01-02 22:32] VITALS: BP 152/84
[2024-01-03] VITALS (7 sets, daily range): BP systolic 150–185; BP diastolic 77–94
[2024-01-03 07:23] LABS: BASO # 0.1 10*3/uL (0.0-0.1); BASO % 1.1 % (0.0-1.0); EOS # 0.4 10*3/uL (0.0-0.4); EOS % 4.1 % (1.0-4.0); HEMATOCRIT 43.6 % (37.0-47.0); LYMPH # 3.4 10*3/uL (1.3-4.4); LYMPH % 33.8 % (27.0-41.0); MEAN CELL VOLUME 91.2 fl (81.0-99.0); MEAN CORPUSCULAR HGB 28.2 pg (27.0-31.0); MEAN PLATELET VOLUME 10.1 fl (9.6-12.3); MONO # 0.7 10*3/uL (0.1-1.0); MONO % 6.8 % (3.0-9.0); NEUT # 5.4 10*3/uL (2.3-7.9); NEUT % 53.9 % (47.0-73.0); PLATELET COUNT AUTOMATED 326 10*3/uL (130-400); RED BLOOD COUNT 4.78 10*6/uL (4.10-5.10); RED CELL DISTRI WIDTH 13.9 % (0-14.5); WHITE BLOOD COUNT 10.1 10*3/uL (4.8-10.8)
[2024-01-03 07:45] LABS: POTASSIUM 3.7 mmol/L (3.4-5.1)
[2024-01-03] MEDS ORDERED: AZITHROMYCIN 250 ML IV SCH (10:00)
[2024-01-03] MEDS ORDERED: busPIRone Hydrochloride 15 MG TAB PO SCH (10:00)
[2024-01-03] MEDS ORDERED: VANCOMYCIN/WATER FOR INJ (PEG) 300 ML IV SCH (12:00)
[2024-01-03] MEDS ORDERED: hydrALAZINE hydrochloride 25 MG TAB PO SCH (14:00)
[2024-01-03] MEDS ORDERED: GABAPENTIN 400 MG CAP PO SCH (14:00)
[2024-01-03] MEDS ORDERED: Ceftriaxone Sodium 1 GM,IV 1 EA in SYRINGE INFUSION 10 ML IV SCH (18:00)
[2024-01-03] MEDS ORDERED: Insulin Glargine, Recombinan 1 UNIT/0.01 ML SC SCH (22:00)
[2024-01-04] VITALS: BP 177/94
[2024-01-04 04:00] VITALS: BP 171/96
[2024-01-04 07:34] LABS: BASO # 0.1 10*3/uL (0.0-0.1); BASO % 1.1 % (0.0-1.0); EOS # 0.5 10*3/uL (0.0-0.4); EOS % 4.7 % (1.0-4.0); HEMATOCRIT 44.7 % (37.0-47.0); LYMPH # 3.7 10*3/uL (1.3-4.4); LYMPH % 37.6 % (27.0-41.0); MEAN CELL VOLUME 88.5 fl (81.0-99.0); MEAN CORPUSCULAR HGB 27.9 pg (27.0-31.0); MEAN CORPUSCULAR HGB CONC 31.5 g/dl (33.0-37.0); MEAN PLATELET VOLUME 9.9 fl (9.6-12.3); MONO # 0.7 10*3/uL (0.1-1.0); MONO % 6.8 % (3.0-9.0); NEUT # 4.9 10*3/uL (2.3-7.9); NEUT % 49.6 % (47.0-73.0); PLATELET COUNT AUTOMATED 310 10*3/uL (130-400); RED BLOOD COUNT 5.05 10*6/uL (4.10-5.10); RED CELL DISTRI WIDTH 13.9 % (0-14.5); WHITE BLOOD COUNT 9.8 10*3/uL (4.8-10.8)
[2024-01-04 07:54] LABS: POTASSIUM 3.8 mmol/L (3.4-5.1)
[2024-01-04 08:00] VITALS: BP 172/96
[2024-01-04] MEDS ORDERED: ISOSORBIDE MONONITRATE 30 MG TAB PO SCH (10:00)
[2024-01-04] MEDS ORDERED: ASPIRIN, CHEWABLE 81 MG TAB PO SCH (10:00)
[2024-01-04] MEDS ORDERED: METOPROLOL SUCCINATE XR 50 MG TAB PO SCH (10:00)
[2024-01-04] MEDS ORDERED: INSULIN LISPRO 1 UNIT/0.01 ML SQ SCH ×2 (10:00)
[2024-01-04] MEDS ORDERED: ATORVASTATIN CALCIUM 80 MG TAB PO SCH (10:00)
[2024-01-04] MEDS ORDERED: LAMOTRIGINE 100 MG TAB PO SCH (10:00)
[2024-01-04] MEDS ORDERED: amLODIPine besylate 5 MG TAB PO SCH (11:00)
[2024-01-04 12:00] VITALS: BP 152/84
[2024-01-04 15:52] VITALS: BP 158/87
[2024-01-04 20:00] VITALS: BP 162/82; BP 171/92
[2024-01-05] VITALS: BP 161/81
[2024-01-05] MEDS ORDERED: LISINOPRIL20 MG PO (03:33)
[2024-01-05] MEDS ORDERED: Lopressor25 MG PO (03:35)
[2024-01-05] MEDS ORDERED: VASCEPA1 G1 PO (03:39)
[2024-01-05] MEDS ORDERED: METHOCARBAMOL500 M1 PO (03:40)
[2024-01-05] MEDS ORDERED: BACLOFEN20 M1 PO (04:11)
[2024-01-05 05:19] LABS: POTASSIUM 4.2 mmol/L (3.4-5.1)
[2024-01-05 08:00] VITALS: BP 134/75
[2024-01-05] MEDS ORDERED: amLODIPine besylate 5 MG TAB PO SCH (10:00)
[2024-01-05 12:00] VITALS: BP 132/71
[2024-01-05 16:00] VITALS: BP 135/80
[2024-01-05 20:00] VITALS: BP 147/73
[2024-01-05] MEDS ORDERED: GABAPENTIN 400 MG CAP PO SCH (22:00)
[2024-01-06] VITALS: BP 169/87
[2024-01-06 07:02] LABS: BASO # 0.1 10*3/uL (0.0-0.1); BASO % 1.1 % (0.0-1.0); EOS # 0.5 10*3/uL (0.0-0.4); EOS % 4.9 % (1.0-4.0); HEMATOCRIT 39.1 % (37.0-47.0); LYMPH # 2.7 10*3/uL (1.3-4.4); LYMPH % 27.1 % (27.0-41.0); MEAN CELL VOLUME 89.1 fl (81.0-99.0); MEAN CORPUSCULAR HGB CONC 31.5 g/dl (33.0-37.0); MEAN PLATELET VOLUME 10.2 fl (9.6-12.3); MONO # 0.8 10*3/uL (0.1-1.0); MONO % 7.6 % (3.0-9.0); NEUT # 5.9 10*3/uL (2.3-7.9); NEUT % 59.1 % (47.0-73.0); PLATELET COUNT AUTOMATED 274 10*3/uL (130-400); RED BLOOD COUNT 4.39 10*6/uL (4.10-5.10); RED CELL DISTRI WIDTH 13.9 % (0-14.5)
[2024-01-06 07:28] LABS: POTASSIUM 4.5 mmol/L (3.4-5.1)
[2024-01-06 08:00] VITALS: BP 166/90
[2024-01-06] MEDS ORDERED: LISINOPRIL 10 MG TAB PO SCH (10:00)
[2024-01-06 12:00] VITALS: BP 165/87
[2024-01-06] MEDS ORDERED: CLOTRIMAZOLE 10 MG LOZENGE PO SCH (14:00)
[2024-01-06 16:00] VITALS: BP 111/58
[2024-01-06] MEDS ORDERED: BUMETANIDE 1 MG TAB PO SCH (18:00)
[2024-01-06 20:00] VITALS: BP 128/71
[2024-01-07] VITALS: BP 121/54
[2024-01-07 05:33] LABS: POTASSIUM 4.4 mmol/L (3.4-5.1)
[2024-01-07] MEDS ORDERED: VANCOMYCIN/WATER FOR INJ (PEG) 350 ML IV SCH (06:00)
[2024-01-07 06:20] LABS: BASO # 0.1 10*3/uL (0.0-0.1); BASO % 1.2 % (0.0-1.0); EOS # 0.5 10*3/uL (0.0-0.4); EOS % 5.1 % (1.0-4.0); HEMATOCRIT 37.9 % (37.0-47.0); LYMPH # 3.3 10*3/uL (1.3-4.4); LYMPH % 32.3 % (27.0-41.0); MEAN CELL VOLUME 91.5 fl (81.0-99.0); MEAN CORPUSCULAR HGB CONC 30.6 g/dl (33.0-37.0); MEAN PLATELET VOLUME 10.4 fl (9.6-12.3); MONO # 0.7 10*3/uL (0.1-1.0); MONO % 7.3 % (3.0-9.0); NEUT # 5.4 10*3/uL (2.3-7.9); NEUT % 53.9 % (47.0-73.0); PLATELET COUNT AUTOMATED 274 10*3/uL (130-400); RED BLOOD COUNT 4.14 10*6/uL (4.10-5.10); RED CELL DISTRI WIDTH 14.1 % (0-14.5); WHITE BLOOD COUNT 10.1 10*3/uL (4.8-10.8)
[2024-01-07 08:00] VITALS: BP 144/74
[2024-01-07] MEDS ORDERED: BACLOFEN20 M1 PO (09:39)
[2024-01-07] MEDS ORDERED: MUCUS RELIEF E600 MG PO (09:39)
[2024-01-07] MEDS ORDERED: AMLODIPINE BESYL5 MG PO (09:43)
[2024-01-07] MEDS ORDERED: LISINOPRIL10 M1 PO (09:43)
[2024-01-07] MEDS ORDERED: OMNICEF300 MG PO (09:50)
[2024-01-07 12:00] VITALS: BP 126/66
[2024-01-07 15:34] VITALS: BP 132/64
== END 2024-01-07 16:29 | disposition home health service (06) | DRG 193 ==
LOC: ED 15:42 → EDHOLD 17:36 → 4E 17:36
PROVIDERS: Emergency Medicine; Internal Medicine; Registered Nurse; Student in an Organized Health Care Education/Training Program; ADMIT Student in an Organized Health Care Education/Training Program; ATTEND Student in an Organized Health Care Education/Training Program
DX: J15.9 Unspecified bacterial pneumonia (principal); G93.41 Metabolic encephalopathy; J96.01 Acute respiratory failure with hypoxia; N18.4 Chronic kidney disease, stage 4 (severe); N17.9 Acute kidney failure, unspecified; I50.22 Chronic systolic (congestive) heart failure; F33.9 Major depressive disorder, recurrent, unspecified; R78.81 Bacteremia; I13.0 Hypertensive heart and chronic kidney disease with heart failure and stage 1 through stage 4 chronic kidney disease, or unspecified chronic kidney disease; E28.2 Polycystic ovarian syndrome; F41.1 Generalized anxiety disorder; R94.31 Abnormal electrocardiogram [ECG] [EKG]; I25.10 Atherosclerotic heart disease of native coronary artery without angina pectoris; E10.65 Type 1 diabetes mellitus with hyperglycemia; E87.8 Other disorders of electrolyte and fluid balance, not elsewhere classified; R33.9 Retention of urine, unspecified; E10.22 Type 1 diabetes mellitus with diabetic chronic kidney disease; E10.42 Type 1 diabetes mellitus with diabetic polyneuropathy; I25.2 Old myocardial infarction; Z20.822 Contact with and (suspected) exposure to COVID-19; Z87.891 Personal history of nicotine dependence; Z82.3 Family history of stroke; Z83.3 Family history of diabetes mellitus; Z82.49 Family history of ischemic heart disease and other diseases of the circulatory system; Z79.899 Other long term (current) drug therapy; Z98.891 History of uterine scar from previous surgery

== ENCOUNTER 2024-01-15 11:16 | Inpatient (IN) | payer OTHER ==
[~2024-01-15] VITALS: Ht 172.7 cm; Wt 101.7 kg
[~2024-01-15 11:16] MED LIST changes: +AMLODIPINE BESYL5 MG PO; +BACLOFEN20 M1 PO; +LISINOPRIL10 M1 PO; +LISINOPRIL20 MG PO; +Lopressor25 MG PO; +METHOCARBAMOL500 M1 PO; +MUCUS RELIEF E600 MG PO; +OMNICEF300 MG PO; +VASCEPA1 G1 PO
[2024-01-15 11:25] VITALS: BP 164/92
[2024-01-15 12:01] LABS: BASO # 0.1 10*3/uL (0.0-0.1); EOS # 0.2 10*3/uL (0.0-0.4); HEMATOCRIT 43.6 % (37.0-47.0); MEAN CELL VOLUME 90.3 fl (81.0-99.0); MEAN PLATELET VOLUME 10.2 fl (9.6-12.3); MONO # 0.5 10*3/uL (0.1-1.0); MONO % 5.2 % (3.0-9.0); NEUT # 7.2 10*3/uL (2.3-7.9); NEUT % 68.3 % (47.0-73.0); PLATELET COUNT AUTOMATED 404 10*3/uL (130-400); RED BLOOD COUNT 4.83 10*6/uL (4.10-5.10); RED CELL DISTRI WIDTH 14.2 % (0-14.5); WHITE BLOOD COUNT 10.5 10*3/uL (4.8-10.8)
[2024-01-15 12:23] LABS: BUN 35 mg/dl (9-23); CHLORIDE 106 mmol/L (98-107); POTASSIUM 4.4 mmol/L (3.4-5.1)
[2024-01-15 12:27] LABS: ETHYL ALCOHOL < 3.0 mg/dl (<3)
[2024-01-15] MEDS ORDERED: FUROSEMIDE 40 MG/4 ML VIAL IV ONE (14:35)
[2024-01-15 15:03] VITALS: BP 160/88
[2024-01-15] MEDS ORDERED: ACETAMINOPHEN 325 MG TAB PO PRN (17:25)
[2024-01-15 19:14] VITALS: BP 162/88
[2024-01-15 21:00] VITALS: BP 156/91
[2024-01-15] MEDS ORDERED: BUMETANIDE 2 MG IV SCH (22:00)
[2024-01-15] MEDS ORDERED: BUMETANIDE 1 MG/4 ML VIAL IV SCH (22:00)
[2024-01-15] MEDS ORDERED: HEPARIN SODIUM 5,000 UNIT/ML VIAL SC SCH (22:00)
[2024-01-15] MEDS ORDERED: Insulin Glargine, Recombinan 1 UNIT/0.01 ML SC SCH (22:00)
[2024-01-15] MEDS ORDERED: hydrALAZINE hydrochloride 25 MG TAB PO SCH (22:00)
[2024-01-16 01:00] VITALS: BP 164/87
[2024-01-16] MEDS ORDERED: Acetaminophen/Hydrocodone 5 MG/325 MG TABLET PO PRN ×2 (02:00→08:49)
[2024-01-16] MEDS ORDERED: Pantoprazole Sodium 40 MG TAB PO SCH (06:00)
[2024-01-16 06:39] LABS: BASO # 0.1 10*3/uL (0.0-0.1); BASO % 1.2 % (0.0-1.0); EOS # 0.4 10*3/uL (0.0-0.4); EOS % 4.6 % (1.0-4.0); HEMATOCRIT 37.5 % (37.0-47.0); MEAN CELL VOLUME 89.9 fl (81.0-99.0); MEAN CORPUSCULAR HGB 27.8 pg (27.0-31.0); MEAN CORPUSCULAR HGB CONC 30.9 g/dl (33.0-37.0); MEAN PLATELET VOLUME 10.3 fl (9.6-12.3); MONO # 0.6 10*3/uL (0.1-1.0); MONO % 6.3 % (3.0-9.0); NEUT # 4.7 10*3/uL (2.3-7.9); NEUT % 52.8 % (47.0-73.0); PLATELET COUNT AUTOMATED 360 10*3/uL (130-400); RED BLOOD COUNT 4.17 10*6/uL (4.10-5.10); RED CELL DISTRI WIDTH 14.3 % (0-14.5); WHITE BLOOD COUNT 8.9 10*3/uL (4.8-10.8)
[2024-01-16 06:59] LABS: BILIRUBIN Negative (Negative); BLOOD 1+ (Negative); CLARITY Cloudy (Clear); COLOR Yellow (Yellow); GLUCOSE 2+ (Negative); KETONE Negative (Negative); LEUKO ESTERASE Negative (Negative); NITRITE Negative (Negative); PH 5.5 (4.5-8.0); UROBILINOGEN 0.2 E.U./dl (0.0-1.0)
[2024-01-16 07:14] LABS: POTASSIUM 3.7 mmol/L (3.4-5.1); TOTAL PROTEIN 5.8 gm/dL (6.0-8.0)
[2024-01-16 07:26] VITALS: BP 128/74
[2024-01-16 07:46] LABS: BACTERIA 3+; RBC 31-40 rbc/hpf (0-2); WBC TNTC wbc/hpf (0-5)
[2024-01-16] MEDS ORDERED: Ziprasidone Hydrochloride 60 MG CAP PO SCH (10:00)
[2024-01-16] MEDS ORDERED: INSULIN LISPRO 1 UNIT/0.01 ML SQ SCH (10:00)
[2024-01-16] MEDS ORDERED: LAMOTRIGINE 100 MG TAB PO SCH (10:00)
[2024-01-16] MEDS ORDERED: LISINOPRIL 10 MG TAB PO SCH (10:00)
[2024-01-16] MEDS ORDERED: ISOSORBIDE MONONITRATE 30 MG TAB PO SCH (10:00)
[2024-01-16] MEDS ORDERED: ASPIRIN, CHEWABLE 81 MG TAB PO SCH (10:00)
[2024-01-16] MEDS ORDERED: amLODIPine besylate 5 MG TAB PO SCH (10:00)
[2024-01-16] MEDS ORDERED: ATORVASTATIN CALCIUM 80 MG TAB PO SCH (10:00)
[2024-01-16] MEDS ORDERED: METOPROLOL SUCCINATE XR 50 MG TAB PO SCH (10:00)
[2024-01-16] MEDS ORDERED: busPIRone Hydrochloride 15 MG TAB PO SCH (10:00)
[2024-01-16 14:23] VITALS: BP 119/61
[2024-01-16 15:40] VITALS: BP 121/64
[2024-01-16 20:00] VITALS: BP 129/58
[2024-01-17] VITALS: BP 153/72
[2024-01-17 05:30] LABS: POTASSIUM 3.7 mmol/L (3.4-5.1)
[2024-01-17 06:17] LABS: BASO # 0.1 10*3/uL (0.0-0.1); BASO % 1.1 % (0.0-1.0); EOS # 0.5 10*3/uL (0.0-0.4); HEMATOCRIT 37.4 % (37.0-47.0); MEAN CELL VOLUME 90.6 fl (81.0-99.0); MEAN CORPUSCULAR HGB 28.1 pg (27.0-31.0); MEAN PLATELET VOLUME 10.4 fl (9.6-12.3); MONO # 0.7 10*3/uL (0.1-1.0); MONO % 7.1 % (3.0-9.0); NEUT # 4.9 10*3/uL (2.3-7.9); PLATELET COUNT AUTOMATED 359 10*3/uL (130-400); RED BLOOD COUNT 4.13 10*6/uL (4.10-5.10); WHITE BLOOD COUNT 10.1 10*3/uL (4.8-10.8)
[2024-01-17 08:00] VITALS: BP 146/85
[2024-01-17 12:00] VITALS: BP 130/65
[2024-01-17 16:00] VITALS: BP 118/55
[2024-01-17 20:00] VITALS: BP 113/49
[2024-01-18] VITALS: BP 130/69
[2024-01-18] MEDS ORDERED: BUMETANIDE 1 MG/4 ML VIAL IV SCH (06:00)
[2024-01-18 06:12] LABS: POTASSIUM 3.9 mmol/L (3.4-5.1)
[2024-01-18 06:15] LABS: BASO # 0.1 10*3/uL (0.0-0.1); BASO % 0.9 % (0.0-1.0); EOS # 0.5 10*3/uL (0.0-0.4); EOS % 4.6 % (1.0-4.0); HEMATOCRIT 35.8 % (37.0-47.0); MEAN CELL VOLUME 88.4 fl (81.0-99.0); MEAN CORPUSCULAR HGB 28.4 pg (27.0-31.0); MEAN CORPUSCULAR HGB CONC 32.1 g/dl (33.0-37.0); MEAN PLATELET VOLUME 10.4 fl (9.6-12.3); MONO # 0.8 10*3/uL (0.1-1.0); MONO % 7.7 % (3.0-9.0); NEUT # 5.3 10*3/uL (2.3-7.9); NEUT % 50.7 % (47.0-73.0); PLATELET COUNT AUTOMATED 328 10*3/uL (130-400); RED BLOOD COUNT 4.05 10*6/uL (4.10-5.10); RED CELL DISTRI WIDTH 14.2 % (0-14.5); WHITE BLOOD COUNT 10.4 10*3/uL (4.8-10.8)
[2024-01-18 08:00] VITALS: BP 156/69
[2024-01-18] MEDS ORDERED: LIDOCAINE 1 EA PATCH T SCH (10:00)
[2024-01-18 12:00] VITALS: BP 125/65
[2024-01-18 16:00] VITALS: BP 126/63
[2024-01-18 20:00] VITALS: BP 134/60
[2024-01-18] MEDS ORDERED: Loperamide Hydrochloride 2 MG CAP PO PRN (23:10)
[2024-01-19] VITALS: BP 155/82
[2024-01-19 06:28] LABS: POTASSIUM 4.4 mmol/L (3.4-5.1)
[2024-01-19 08:00] VITALS: BP 132/77
[2024-01-19 12:00] VITALS: BP 125/67
[2024-01-19 16:00] VITALS: BP 136/88
[2024-01-19 20:00] VITALS: BP 130/67
[2024-01-20] VITALS: BP 128/61
[2024-01-20 08:00] VITALS: BP 139/67
[2024-01-20] MEDS ORDERED: LISINOPRIL 40 MG TAB PO SCH (10:00)
[2024-01-20] MEDS ORDERED: NEURONTIN600 MG PO (11:52)
[2024-01-20] MEDS ORDERED: LISINOPRIL40 MG PO (11:52)
== END 2024-01-20 13:00 | disposition home health service (06) | DRG 280 ==
LOC: ED 11:16 → 4E 15:01 → EDHOLD 15:01 → 4E 01-16 13:09
PROVIDERS: Emergency Medicine; Internal Medicine; Student in an Organized Health Care Education/Training Program; ADMIT Internal Medicine; ATTEND Internal Medicine
DX: I50.23 Acute on chronic systolic (congestive) heart failure (principal); E43 Unspecified severe protein-calorie malnutrition; I21.A1 Myocardial infarction type 2; G92.8 Other toxic encephalopathy; N18.4 Chronic kidney disease, stage 4 (severe); E10.65 Type 1 diabetes mellitus with hyperglycemia; E10.42 Type 1 diabetes mellitus with diabetic polyneuropathy; T50.995A Adverse effect of other drugs, medicaments and biological substances, initial encounter; E10.22 Type 1 diabetes mellitus with diabetic chronic kidney disease; F31.9 Bipolar disorder, unspecified; E28.2 Polycystic ovarian syndrome; F41.1 Generalized anxiety disorder; I25.10 Atherosclerotic heart disease of native coronary artery without angina pectoris; D64.9 Anemia, unspecified; I44.7 Left bundle-branch block, unspecified; Z95.2 Presence of prosthetic heart valve; Z98.891 History of uterine scar from previous surgery; Z95.5 Presence of coronary angioplasty implant and graft; Z87.891 Personal history of nicotine dependence; Y92.89 Other specified places as the place of occurrence of the external cause; Z83.3 Family history of diabetes mellitus; Z82.49 Family history of ischemic heart disease and other diseases of the circulatory system; Z79.82 Long term (current) use of aspirin; Z79.4 Long term (current) use of insulin; Z79.899 Other long term (current) drug therapy; Z68.35 Body mass index [BMI] 35.0-35.9, adult

== ENCOUNTER → 2024-02-24 | Outpatient (CLI) | payer OTHER ==
[~2024-02-24] MED LIST changes: +LISINOPRIL40 MG PO; +NEURONTIN600 MG PO
[2024-02-24 10:26] LABS: BASO # 0.1 10*3/uL (0.0-0.1); BASO % 1.4 % (0.0-1.0); EOS # 0.3 10*3/uL (0.0-0.4); EOS % 3.7 % (1.0-4.0); HEMATOCRIT 38.9 % (37.0-47.0); MEAN CELL VOLUME 88.8 fl (81.0-99.0); MEAN CORPUSCULAR HGB 27.2 pg (27.0-31.0); MEAN CORPUSCULAR HGB CONC 30.6 g/dl (33.0-37.0); MEAN PLATELET VOLUME 9.4 fl (9.6-12.3); MONO # 0.7 10*3/uL (0.1-1.0); MONO % 7.3 % (3.0-9.0); NEUT # 5.1 10*3/uL (2.3-7.9); NEUT % 55.7 % (47.0-73.0); PLATELET COUNT AUTOMATED 405 10*3/uL (130-400); RED BLOOD COUNT 4.38 10*6/uL (4.10-5.10); RED CELL DISTRI WIDTH 13.9 % (0-14.5); WHITE BLOOD COUNT 9.1 10*3/uL (4.8-10.8)
[2024-02-24 10:43] LABS: BILIRUBIN Negative (Negative); BLOOD 2+ (Negative); CLARITY Clear (Clear); COLOR Yellow (Yellow); GLUCOSE 1+ (Negative); KETONE Negative (Negative); LEUKO ESTERASE Negative (Negative); NITRITE Negative (Negative); UROBILINOGEN 0.2 E.U./dl (0.0-1.0)
[2024-02-24 10:50] LABS: POTASSIUM 3.7 mmol/L (3.4-5.1)
[2024-02-24 10:53] LABS: POTASSIUM 3.7 mmol/L (3.4-5.1); TOTAL PROTEIN 6.7 gm/dL (6.0-8.0)
[2024-02-24 10:54] LABS: VITAMIN D, 25-HYDROXY 10.3 ng/mL (30-100)
[2024-02-24 11:27] LABS: FINE GRANULAR CAST 0-2
[2024-02-25 02:06] LABS: HEMOGOLBIN A1C 7.6 % (4.8-5.6)
== END ==
LOC: LAB 09:42
PROVIDERS: Nurse Practitioner Family; Student in an Organized Health Care Education/Training Program; ATTEND Internal Medicine Endocrinology, Diabetes & Metabolism
DX: R53.83 Other fatigue (principal); R80.9 Proteinuria, unspecified; E55.9 Vitamin D deficiency, unspecified; N25.81 Secondary hyperparathyroidism of renal origin; D64.9 Anemia, unspecified; N18.4 Chronic kidney disease, stage 4 (severe); E11.9 Type 2 diabetes mellitus without complications; E78.2 Mixed hyperlipidemia

== ENCOUNTER 2024-04-20 20:20 | Emergency (ER) | payer OTHER ==
[~2024-04-20] VITALS: Ht 167.6 cm; Wt 111.1 kg
[~2024-04-20 20:20] MED LIST changes: +METOPROLOL SUC100 M1 PO
[2024-04-20] MEDS ORDERED: methylPREDNISolone sod succ 125 MG VIAL IV ONE (23:25)
[2024-04-20] MEDS ORDERED: Albuterol Sulf/Ipratropium 3 ML VIAL NEB ONE (23:25)
== END 2024-04-21 20:40 | disposition home or self-care (01) ==
LOC: ED 20:20
DX: B34.9 Viral infection, unspecified (principal); Z20.822 Contact with and (suspected) exposure to COVID-19; F41.9 Anxiety disorder, unspecified; F32.A Depression, unspecified; E11.9 Type 2 diabetes mellitus without complications; I25.2 Old myocardial infarction; R06.02 Shortness of breath; I50.9 Heart failure, unspecified; I25.10 Atherosclerotic heart disease of native coronary artery without angina pectoris; Z79.4 Long term (current) use of insulin; Z90.89 Acquired absence of other organs; Z98.890 Other specified postprocedural states; Z87.891 Personal history of nicotine dependence

== ENCOUNTER → 2024-05-18 | Outpatient (CLI) | payer OTHER ==
[2024-05-18 11:29] LABS: POTASSIUM 4.4 mmol/L (3.4-5.1); TOTAL PROTEIN 6.9 gm/dL (6.0-8.0)
== END | disposition home or self-care (01) ==
LOC: LAB 10:39
PROVIDERS: Student in an Organized Health Care Education/Training Program; ATTEND Internal Medicine Endocrinology, Diabetes & Metabolism
DX: E11.22 Type 2 diabetes mellitus with diabetic chronic kidney disease (principal); N18.9 Chronic kidney disease, unspecified; E78.2 Mixed hyperlipidemia

== ENCOUNTER 2025-02-04 01:48 | Emergency (ER) | payer OTHER ==
[~2025-02-04] VITALS: Ht 172.7 cm; Wt 99.8 kg
[~2025-02-04 01:48] MED LIST changes: +ATORVASTATIN CA20 M1 PO; +BACLOFEN5 MG PO; +CALCITRIOL0.25 MCG PO; +CALCIUM ACETAT667 M3 PO; +GABAPENTIN ER600 MG PO; +GABAPENTIN800 MG PO; +INSULIN LI100 UNIT/1 SQ; +METOLAZONE10 MG PO; +MULTIVITAMIN1 EACH PO; +NYSTATIN15 GM T; +VITAMIN D350 MCG PO; +ZETIA10 MG PO
[2025-02-04] MEDS ORDERED: Dicyclomine Hydrochloride 20 MG/10 ML OSYR PO STA (01:53)
[2025-02-04] MEDS ORDERED: MG-AL HYDROXIDE/SIMETICONE 30 ML UDC PO STA (01:53)
[2025-02-04 02:15] LABS: BASO # 0.1 10*3/uL (0.0-0.1); BASO % 0.6 % (0.0-1.0); EOS # 0.2 10*3/uL (0.0-0.4); EOS % 2.6 % (1.0-4.0); MEAN CELL VOLUME 91.9 fl (81.0-99.0); MEAN CORPUSCULAR HGB 30.1 pg (27.0-31.0); MEAN PLATELET VOLUME 9.8 fl (9.6-12.3); MONO # 0.7 10*3/uL (0.1-1.0); MONO % 7.8 % (3.0-9.0); NEUT # 6.5 10*3/uL (2.3-7.9); NEUT % 73.1 % (47.0-73.0); NUCLEATED RED BLOOD CELL 0.0 % (0.0-0.0); NUCLEATED RED BLOOD CELL 0.0 10*3/uL (0.0-0.0); PLATELET COUNT AUTOMATED 211 10*3/uL (130-400); RED CELL DISTRI WIDTH 15.5 % (0-14.5)
[2025-02-04 02:31] LABS: ACT PARTIAL THROMBO TIME 26.8 SECONDS (20.0-32.1)
[2025-02-04 02:40] LABS: BUN 40.0 mg/dl (9-23); SGPT/ALT 9.0 U/L (5-49)
[2025-02-04] MEDS ORDERED: ACID REDUCER10 MG PO (04:35)
== END 2025-02-04 05:26 | disposition home or self-care (01) ==
LOC: ED 01:48
PROVIDERS: Internal Medicine
DX: K21.9 Gastro-esophageal reflux disease without esophagitis (principal); R06.02 Shortness of breath; I25.2 Old myocardial infarction; Z79.899 Other long term (current) drug therapy; Z79.82 Long term (current) use of aspirin; Z95.5 Presence of coronary angioplasty implant and graft; Z90.89 Acquired absence of other organs; Z98.890 Other specified postprocedural states; Z87.891 Personal history of nicotine dependence